=== PATIENT | female | born 1965 | race Caucasian/White ===

== ENCOUNTER → 2019-08-11 | Outpatient (CLI) | payer OTHER ==
[~2019-08-11] MED LIST: BACTRIM DS TAB1 EACH PO; IBUPROFEN 800800 M1 PO; NORCO 5-325 TA1 EACH PO; ROBAXIN 750 MG750 M1 PO
== END ==
LOC: M.RAD 13:22
DX: Z12.31 Encounter for screening mammogram for malignant neoplasm of breast (principal)

== ENCOUNTER → 2019-08-18 | Outpatient (CLI) | payer OTHER | LOC: M.ULTRA 09:59 | DX: N60.01 Solitary cyst of right breast (principal); N63.20 Unspecified lump in the left breast, unspecified quadrant ==